=== PATIENT | male | born 1955 | race Caucasian/White ===

== ENCOUNTER 2021-04-04 09:37 | Day surgery (SDC) | payer BC ==
[~2021-04-04] VITALS: Ht 177.8 cm; Wt 70.7 kg
[2021-04-04] MEDS ORDERED: NAPR220 (10:00)
[2021-04-04] MEDS ORDERED: Flonase 0.05% N16 GM (10:01)
--- NOTE | 2021-04-04 10:31 | NUR ---
04/04/21 1031 PAT MON ONE ATTEMPT IN RH VALVE BY MARIO SECOND SUCCESSFUL IN RFA PT TOW
--- NOTE | 2021-04-04 15:18 | NUR ---
04/04/21 1518 Karin Velez LATE ENTRY----THIS PATIENT ORIGINALLY TOLD US HIS MOTHER WAS HIS RESIST COATER DEVELOPER TO TAKE HIM HOME. WHEN NURSE WENT OUT TO HAVE THE MOTHER MOVE THE CAR TO THE DOOR THE MOTHER TOLD NURSE THAT SHE DIDN'T FEEL LIKE SHE COULD DRIVE. SHE CURRENTLY WAS HAVING A HEADACHE AND PROBLEMS WITH VERTIGO/DIZZINESS. SHE ALSO STATED SHE DIDN'T BRING HER PILLOW THAT SHE SITS ON TO DRIVE. SHE STATED THAT HER AND HER SON COULD JUST SIT IN THE CAR FOR A LITTLE BIT AND LET HIM WAKE UP MORE AND THEN HE WOULD DRIVE. NURSE EXPLAINED TO MOTHER AND THEN THE PATIENT THAT THIS WAS NOT ALLOWED THE PATIENT HAD SEDATION AND IT WAS NOT LEGAL FOR HIM TO DRIVE. THIS WAS EXPLAINED IN DETAIL. OPTIONS WERE GIVEN TO THE SON/PATIENT IF HE WANTED TO CALL A FRIEND OR TAXI AND HE CALLED A FRIEND ROLAN WHILE THE NURSE WAS LISTENING AND CONFIRMED THAT ROLAN WOULD COME AND PICK THEM UP. PATIENT EXPRESSED THAT ROLAN WOULD BE DRIVING A BLUE [place] PICKUP. PATIENT ASKED REPEATEDLY TO BE ABLE TO GO OUT FRONT AND WATCH FOR HIS FRIEND TO COME AND IT WAS EXPLAINED THAT THIS WAS NOT ALLOWED AND WE (NURSE) WOULD WATCH FOR THE BLUE [place] TRUCK. HIS FRIEND ROLAN FINALLY ARRIVED AND PATIENT AND HIS MOTHER WERE ASSISTED IN GOING TO THE TRUCK. MOTHER WAS PLACED IN THE FRONT SEAT AND PATIENT GOT IN THE BACK SEAT. NURSE THEN CAME INSIDE AND WATCHED THROUGH THE WINDOW THE BLUE [place] TRUCK DROVE THE PATIENT AND HIS MOTHER OVER TO THEIR RED [place] PRIUS AND THEY GOT OUT OF THE TRUCK AND INTO THE PRIUS. BLUE TRUCK DROVE OFF WITH JUST ROLAN IN THE VEHICLE. NURSE CAME IN AND CALL THE NONEMERGENCY POLICE LINE AND REPORTED THIS TO THE TECHNOLOGY ADVISOR AND PATIENTS HOME ADDRESS WAS GIVEN. OFFICER CALLED BACK TO CONFIRM INFORMATION AND HIS QUESTIONS WERE ANSWERED.
== END 2021-04-04 11:50 | disposition home or self-care (01) ==
LOC: ORSCSDS 09:37
PROVIDERS: Student in an Organized Health Care Education/Training Program
PROC: 0DBN8ZX Excision of Sigmoid Colon, Via Natural or Artificial Opening Endoscopic, Diagnostic (ICD-10-PCS; principal; 2021-04-04 11:00)
PROC: 0DBP8ZX Excision of Rectum, Via Natural or Artificial Opening Endoscopic, Diagnostic (ICD-10-PCS; principal; 2021-04-04 11:00)
PROC: 0DBL8ZX Excision of Transverse Colon, Via Natural or Artificial Opening Endoscopic, Diagnostic (ICD-10-PCS; principal; 2021-04-04 11:00)
DX: R93.3 Abnormal findings on diagnostic imaging of other parts of digestive tract (principal); Z86.010 Personal history of colon polyps; E78.5 Hyperlipidemia, unspecified
CPT/HCPCS: 88305; J2704; J7120

== ENCOUNTER 2024-12-05 09:08 | Emergency (ER) | payer MEDICARE ==
[~2024-12-05] VITALS: Ht 177.8 cm; Wt 79.4 kg
[~2024-12-05 09:08] MED LIST: Flonase 0.05% N16 GM; NAPR220
[2024-12-05 09:58] VITALS: BP 150/93
== END 2024-12-05 10:46 | disposition home or self-care (01) ==
LOC: ER 09:08
DX: H11.31 Conjunctival hemorrhage, right eye (principal); Z88.5 Allergy status to narcotic agent
CPT/HCPCS: 99282